=== PATIENT | male | born 1980 | race American Indian/Alaskan Native ===

== ENCOUNTER 2020-02-07 14:12 | Emergency (ER) | payer SELFPAY ==
[2020-02-07 14:19] VITALS: BP 130/71
--- NOTE | 2020-02-07 15:53 | Emergency Department Report ---
Chief Complaint: Medical Clearance Stated Complaint: BREAKOUT ON FACE Time Seen by Provider: 02/07/20 15:48 - HPI History of Present Illness: 39-year-old male presents to the emergency room wanting a refill for his acne medication. Patient denies any fever chills. - Exam Vital Signs: Vital Signs 02/07/20 14:18 Temperature 98.8 F Pulse Rate 75 Respiratory 14 Rate Blood Pressure 130/71 O2 Sat by Pulse 99 Oximetry Physical Exam: Alert and oriented x3 no acute distress nontoxic in appearance talking on the phone. Pustular erythematous lesions on the bridge of nose and cheeks does not appear to be infectious nonedematous no drainage. Patient is ambulatory without difficulties. MSE screening note: Focused history and physical exam performed. Due to findings the following was ordered: 39-year-old male presents to the emergency room wanting a refill for his acne medication. Discussed with patient that he can follow-up with a primary care provider or urgent care for his refill on his acne medication. Patient has stable vital signs and is stable to be discharge with outpatient follow-up. ED Disposition for MSE Disposition: Z- MED SCREENING EXAM-LEFT Is pt being admited?: No Does the pt Need Aspirin: No Condition: Stable Additional Instructions: Recommend to follow-up with your primary care provider or urgent care. Referrals: [facility] [Provider Group] - 3-5 Days
== END 2020-02-07 16:36 | disposition left against medical advice (07) ==
LOC: ED 14:12
DX: R51 Headache (principal); Z53.21 Procedure and treatment not carried out due to patient leaving prior to being seen by health care provider